=== PATIENT | male | born 1975 | race Caucasian/White ===

== ENCOUNTER 2019-04-24 13:51 | Emergency (ER) | payer OTHER ==
[~2019-04-24] VITALS: Ht 188 cm; Wt 98.0 kg
[2019-04-24] MEDS ORDERED: DIOVAN160 MG PO (14:09)
[2019-04-24] MEDS ORDERED: PAXIL10 MG PO (14:09)
[2019-04-24] MEDS ORDERED: XANAX 0.5 MG0.5 MG PO (14:09)
[2019-04-24] MEDS ORDERED: CENTANY30 GM TOP (14:37)
[2019-04-24] MEDS ORDERED: ZANAFLEX4 MG PO (14:37)
[2019-04-24] MEDS ORDERED: IBUPROFEN 800800 M1 PO (14:37)
[2019-04-24 15:58] VITALS: BP 143/90
== END 2019-04-24 15:58 | disposition left against medical advice (07) ==
LOC: M.ERS 13:51
DX: T23.271A Burn of second degree of right wrist, initial encounter (principal); T31.0 Burns involving less than 10% of body surface; S76.211A Strain of adductor muscle, fascia and tendon of right thigh, initial encounter; S63.591A Other specified sprain of right wrist, initial encounter; S80.11XA Contusion of right lower leg, initial encounter; S30.810A Abrasion of lower back and pelvis, initial encounter; V29.49XA Motorcycle driver injured in collision with other motor vehicles in traffic accident, initial encounter; Y93.89 Activity, other specified; Y92.89 Other specified places as the place of occurrence of the external cause; Y99.8 Other external cause status